=== PATIENT | female | born 1945 | race Caucasian/White ===

== ENCOUNTER 2016-07-12 12:11 | Observation (INO) | payer OTHER ==
[~2016-07-12] VITALS: Ht 157.5 cm; Wt 65.6 kg
[~2016-07-12 12:11] MED LIST: HYDROCHLOROTHIA25 MG PO; KLOR-CON 88 MEQ PO; LOTREL 5/201 CAPSULE PO; WELCHOL625 MG PO
[2016-07-12 13:44] LABS: MCH 30.4 PG (29.0-34.0); MCHC 33.2 G/DL (30.0-36.0); MCV 91.5 FL (83-99); MEAN PLAT.VOLUME 9.1 uM^3 (9.5-12.4); PLATELET COUNT 227 K/uL (156-360); RBC DIS.WIDTH-CV 13.8 % (11.8-14.6); RBC DIS.WIDTH-SD 45.7 % (39-53); RED BLOOD COUNT 4.81 M/uL (3.80-5.20); WHITE BLOOD COUNT 6.7 K/uL (4.1-10.2)
[2016-07-12 14:01] LABS: CHLORIDE 105 mEq/L (99-109); POTASSIUM 3.9 mEq/L (3.7-5.4); SODIUM 141 mEq/L (136-147)
[2016-07-12 14:03] LABS: GLUCOSE 102 mg/dL (70-99)
[2016-07-12 14:04] LABS: ANION GAP 9 MEQ/L (2-14)
[2016-07-12 14:07] LABS: GFR ESTIMATE (CALCULATED) > 59 mL/min/
[2016-07-12 14:08] LABS: TROP-I INTERPRETATION NEGATIVE; TROPONIN-I < 0.01 ng/mL (0.0-0.30); UREA NITROGEN (BUN) 16 mg/dL (9-23)
[2016-07-12] MEDS ORDERED: PREVALITE PACKET4 GM PO (14:11)
[2016-07-12 14:29] LABS: ADD MIUA? YES; BILIRUBIN NEGATIVE; BLOOD SMALL; COLOR YELLOW ((YELLOW)); GLUCOSE (STRIP) NEGATIVE; KETONES 5; LEUKOCYTES SMALL; NITRITE POSITIVE; PROTEIN (STRIP) NEGATIVE; SPECIFIC GRAVITY 1.012 (1.000-1.030); UROBILINOGEN 0.2 MG/DL (0.2-1.0)
[2016-07-12 14:36] LABS: BACTERIA 3+ /HPF; EPITHELIAL CELLS RARE /HPF; MUCUS TRACE /LPF; RED BLOOD CELLS 0-5 /HPF (0-5)
[2016-07-12] MEDS ORDERED: SYNTHROID100 MCG PO (15:52)
[2016-07-12 15:57] LABS: TROP-I INTERPRETATION NEGATIVE; TROPONIN-I < 0.01 ng/mL (0.0-0.30)
[2016-07-12 16:49] LABS: D-DIMER ELISA 0.46 mg/L FEU (< 0.57)
[2016-07-12 17:34] VITALS: BP 155/70
[2016-07-12 22:41] LABS: TROP-I INTERPRETATION NEGATIVE; TROPONIN-I < 0.01 ng/mL (0.0-0.30)
[2016-07-13 03:52] VITALS: BP 124/63
[2016-07-13 05:31] LABS: HEMATOCRIT 41.6 % (36.0-46.0); MCH 30.8 PG (29.0-34.0); MCHC 32.5 G/DL (30.0-36.0); MEAN PLAT.VOLUME 10.1 uM^3 (9.5-12.4); PLATELET COUNT 211 K/uL (156-360); RBC DIS.WIDTH-CV 14.2 % (11.8-14.6); RBC DIS.WIDTH-SD 48.9 % (39-53); RED BLOOD COUNT 4.38 M/uL (3.80-5.20); WHITE BLOOD COUNT 6.6 K/uL (4.1-10.2)
[2016-07-13 05:50] LABS: TROP-I INTERPRETATION NEGATIVE; TROPONIN-I < 0.01 ng/mL (0.0-0.30)
[2016-07-13 05:56] LABS: ALKALINE PHOSPHATASE 66 IU/L (3-129); ANION GAP 7 MEQ/L (2-14); CHLORIDE 105 MEQ/L (99-109); GFR ESTIMATE (CALCULATED) > 59 mL/min/; GLUCOSE 105 mg/dL (70-99); POTASSIUM 4.1 MEQ/L (3.7-5.4); SAMPLE HEMOLYSIS CHECK 0; SAMPLE ICTERIC CHECK 0; SAMPLE LIPEMIA CHECK 0; SODIUM 141 MEQ/L (136-147); TOTAL BILIRUBIN 0.5 MG/DL (0.0-1.0); UREA NITROGEN (BUN) 20 mg/dL (9-23)
[2016-07-13 08:07] VITALS: BP 136/65
[2016-07-13] MEDS ORDERED: LISINOPRIL20 MG PO (09:37)
[2016-07-13] MEDS ORDERED: ASPIR-LOW81 MG PO (09:37)
[2016-07-13] MEDS ORDERED: CEFTIN500 MG PO (09:51)
== END 2016-07-13 10:36 | disposition home or self-care (01) ==
LOC: EME 12:11 → 5WEST 15:51 → EDOF 15:51 → 5WEST 17:26
PROVIDERS: Internal Medicine; Physician Assistant Medical
DX: R07.9 Chest pain, unspecified (principal); N39.0 Urinary tract infection, site not specified; M54.2 Cervicalgia; I10 Essential (primary) hypertension; E03.9 Hypothyroidism, unspecified; E78.5 Hyperlipidemia, unspecified; E78.00 Pure hypercholesterolemia, unspecified
CPT/HCPCS: 71020; 80048; 80053; 81003; 84484; 85027; 85379; 93005; 99281; 99285; G0378; J0696; J1644; J7050